=== PATIENT | female | born 1980 | race Caucasian/White ===

== ENCOUNTER 2023-03-20 15:07 | Inpatient (IN) | payer MEDICAID ==
[~2023-03-20] VITALS: Ht 157.5 cm; Wt 89.4 kg
[~2023-03-20 15:07] MED LIST: FERR324T11 PO; MEDR10TA PO
[2023-03-20 16:21] LABS: BASOPHILS % (AUTO) 0.6 % (0.0-2.0); EOSINOPHILS % (AUTO) 0.5 % (0.0-4.0); LYMPHOCYTES # (AUTO) 1.2 K/uL (2.5-16.5); LYMPHOCYTES % (AUTO) 14.2 % (20.5-51.1); MEAN CORPUSCULAR HEMOGLOBIN 21 pg (27-31); MEAN CORPUSCULAR HGB CONC 31 g/dL (33-37); MEAN CORPUSCULAR VOLUME 66.2 fL (80-94); MONOCYTES # (AUTO) 0.5 K/uL (0.8-1.0); MONOCYTES % (AUTO) 5.5 % (1.7-9.3); NEUTROPHILS # (AUTO) 6.5 K/uL (1.8-7.7); NEUTROPHILS % (AUTO) 79.2 % (42.2-75.2); PLATELET COUNT (AUTO) 239 K/uL (140-450); RED BLOOD CELL COUNT(AUTO) 2.65 MIL/uL (4.20-5.40); RED CELL DISTRIBUTION WIDTH 17.8 % (11.6-13.7); WHITE BLOOD COUNT (AUTO) 8.2 K/uL (4.8-10.8)
[2023-03-20 16:40] LABS: ALBUMIN 3.1 g/dL (3.4-5.0); ANION GAP 14.9 (8-16); CARBON DIOXIDE 22.9 mmol/L (21-32); CREATININE 0.6 mg/dL (0.6-1.3); POTASSIUM 3.8 mmol/L (3.5-5.1); TOTAL BILIRUBIN 0.3 mg/dL (0.0-1.0)
--- NOTE | 2023-03-20 16:41 | NUR ---
ermd aware of h/h 5.5/ 17.5
[2023-03-20 16:43] LABS: HEMATOCRIT 17.5 % (36-48); HEMOGLOBIN 5.5 g/dL (12.0-16.0)
--- NOTE | 2023-03-20 17:14 | NUR ---
VAGINAL BLEEDING X 10 DAYS, PATIENT IS PALE LOOKING, WITH BOUTS OF INTERMITTENT DIZZINESS.
--- NOTE | 2023-03-20 17:23 | NUR ---
CALL CENTRE SUPERVISOR AT BEDSIDE.
[2023-03-20 17:53] LABS: PROTHROMBIN TIME 9.9 secs (10.8-13.4)
[2023-03-20 18:05] LABS: APPEARANCE,URINE BLOODY (CLEAR); BILIRUBIN,URINE NEGATIVE (NEGATIVE); BLOOD, URINE 3+ (NEGATIVE); COLOR,URINE AMBER (YELLOW); LEUKOCYTE ESTERASE ,URINE NEGATIVE (NEGATIVE); NITRITE, URINE NEGATIVE (NEGATIVE); UGLUCOSE 3+ (NEGATIVE)
[2023-03-20 18:14] LABS: CALCIUM OXALATE CRYSTALS,UR None Seen /HPF (None Seen); RBC,URINE 50-80 /HPF (0-5); TRICHOMONAS,URINE None Seen /HPF (None Seen); YEAST,URINE None Seen /HPF (None Seen)
[2023-03-20 18:15] LABS: COARSE GRANULAR CASTS,URINE None Seen /LPF (None Seen); FINE GRANULAR CASTS,URINE None Seen /LPF (None Seen); HYALINE CASTS, URINE None Seen /LPF (None Seen); OTHER CASTS, URINE None Seen /LPF (None Seen); OTHER CRYSTALS,URINE None Seen /HPF (None Seen); RED BLOOD CELL CASTS,URINE None Seen /LPF (None Seen); TRIPLE PHOSPHATE CRYSTAL,UR None Seen /HPF (None Seen); URIC ACID CRYSTALS,URINE None Seen /HPF (None Seen); URINE AMORPHOUS URATE None Seen /HPF (None Seen); WAXY CASTS,URINE None Seen /LPF (None Seen)
[2023-03-20 18:24] LABS: FREE T4 (FREE THYROXINE) 0.85 ng/dL (0.76-1.46); THYROID STIMULATING HORMONE 1.77 uIU/mL (0.34-3.74)
--- NOTE | 2023-03-20 18:25 | NUR ---
PELVIC EXAM COMPLETED BY PROVIDER, ESCORTED BY FEMALE RN.
--- NOTE | 2023-03-20 18:55 | NUR ---
BLOOD TRANSFUSION STARTED. SEE PAPER TRANSFUSION FORM.
--- NOTE | 2023-03-20 19:30 | NUR ---
RECEIVED IN BED 11 WITH PRBC'S INFUSING WELL. PT DENIES ANY COMPLAINTS AT THIS TIME.
--- NOTE | 2023-03-20 20:40 | NUR ---
REPORT CALLED TO SANDI YANG
--- NOTE | 2023-03-20 20:48 | NUR ---
TO BED 125B VIA GURNEY, ATTACHED TO CM, ACCOMPANIED BY RN AND ERT
[2023-03-20 20:50] VITALS: PULSE 86; RESP 18; O2SAT 100
--- NOTE | 2023-03-20 20:50 | NUR ---
[facility] 42 [facility] CC: HEAVY VAGINAL BLEEDING. NO ACUTE DISTRESS ON ROOM AIR. IV ACCESS ON THE LEFT AC 20 GAUGE INTACT AND PATENT. SKIN INTACT. AMBULATORY. SAFETY PRECAUTIONS ARE IN PLACE. CALL LIGHT IN REACH. MRSA SCREENING DONE. INSTRUCTED PATIENT NPO AXCEPT MEDS WITH UNDERSTANDING.
[2023-03-20 20:58] VITALS: PULSE 93
[2023-03-20] MEDS ORDERED: DEXT 5% /NACL 0.9% 1,000 ML IV SCH (23:15)
[2023-03-20] MEDS ORDERED: ONDANSETRON 4 MG/2 ML VIAL IVP PRN (23:30)
[2023-03-20] MEDS ORDERED: HYDROcodone/APAP 7.5/325 MG 1 TAB PO PRN (23:30)
[2023-03-20] MEDS ORDERED: ACETAMINOPHEN 325 MG TAB PO PRN (23:30)
[2023-03-21] VITALS: BP 106/43; PULSE 86; RESP 18; TEMP 99; O2SAT 99
[2023-03-21 00:13] LABS: BARBITURATE, URINE NEGATIVE ng/ml (NEG <=200); BENZODIAZEPINE, URINE NEGATIVE ng/mL (NEG <=200); CANNABINOID, URINE NEGATIVE ng/mL (NEG <=50); COCAINE, URINE NEGATIVE ng/mL (NEG <=300); OPIATE, URINE NEGATIVE ng/mL (NEG <=2000); PHENCYCLIDINE SCREEN,URINE NEGATIVE ng/mL (NEG <=25)
--- NOTE | 2023-03-21 00:38 | NUR ---
RECEIVED A CALL FROM [facility] ,LAB REPORTING CRITICAL LAB VALUE LACTIC ACID 3.2. NOTIFIED DR. ANDERSEN EXECUTIVE CREATIVE DIRECTOR WITH ORDERS, CARRIED OUT.
[2023-03-21 00:56] LABS: MAGNESIUM 1.8 mg/dL (1.8-2.4); PHOSPHORUS 2.9 mg/dL (2.5-4.9); TRIGLYCERIDES 263 mg/dL (30-150)
[2023-03-21 00:57] LABS: AMYLASE 32 U/L (25-115); CHOL/HDL RATIO 4.3 (1-4.5); FREE T4 (FREE THYROXINE) 0.88 ng/dL (0.76-1.46); HDL CHOLESTEROL 41 mg/dL (40-60); LDL (CALC) 82 mg/dL (60-100); LIPASE 89 U/L (73-393); THYROID STIMULATING HORMONE 1.86 uIU/mL (0.34-3.74)
--- NOTE | 2023-03-21 03:30 | NUR ---
I UNIT OF BLOOD TRANSFUSION COMPLETED WITH NO ADVERSE REACTION NOTED AT THIS TIME.
[2023-03-21 04:00] VITALS: BP 119/58; PULSE 75; PULSE 96; RESP 17; TEMP 97.5; O2SAT 98
[2023-03-21] MEDS: NACL 0.9% 1,000 ML IV SCH ×4 (04:12→23:24)
[2023-03-21 05:37] LABS: BASOPHILS % (AUTO) 0.5 % (0.0-2.0); EOSINOPHILS # (AUTO) 0.1 K/uL (0-0.4); EOSINOPHILS % (AUTO) 1.4 % (0.0-4.0); HEMATOCRIT 22.3 % (36-48); HEMOGLOBIN 7.1 g/dL (12.0-16.0); LYMPHOCYTES % (AUTO) 25.6 % (20.5-51.1); MEAN CORPUSCULAR HEMOGLOBIN 24 pg (27-31); MEAN CORPUSCULAR HGB CONC 32 g/dL (33-37); MEAN CORPUSCULAR VOLUME 74.4 fL (80-94); MONOCYTES # (AUTO) 0.5 K/uL (0.8-1.0); MONOCYTES % (AUTO) 6.9 % (1.7-9.3); NEUTROPHILS % (AUTO) 65.6 % (42.2-75.2); PLATELET COUNT (AUTO) 210 K/uL (140-450); WHITE BLOOD COUNT (AUTO) 7.7 K/uL (4.8-10.8)
[2023-03-21 06:07] LABS: ANION GAP 12.9 (8-16); CREATININE 0.4 mg/dL (0.6-1.3); POTASSIUM 3.9 mmol/L (3.5-5.1)
[2023-03-21 06:14] LABS: MAGNESIUM 1.9 mg/dL (1.8-2.4); PHOSPHORUS 3.7 mg/dL (2.5-4.9)
--- NOTE | 2023-03-21 07:33 | NUR ---
GAVE BEDSIDE REPORT TO AM NURSE FOR CONTINUITY OF CARE. PATIENT STABLE.
--- NOTE | 2023-03-21 07:38 | NUR ---
RECEIVED PT FROM NIGHT RN, PT IS AWAKE, ALERT AND ORIENTED, ON ROOM AIR, [place]LANDER SPEAKING, AMBULATES TO THE BATHROOM, IV LINE NOTED ON THE LEFT AC G. 20 WITH NS INFUSING AT 100ML/HR, NO SIGN OF DISTRESS AND WILL CONTINUE TO MONITOR PT.
[2023-03-21 08:00] VITALS: BP 122/72; PULSE 77; PULSE 82; RESP 18; TEMP 97; O2SAT 98
[2023-03-21] MEDS: DOCUSATE SODIUM 100 MG GELCAP PO SCH ×2 (08:31→23:22)
[2023-03-21] MEDS: PANTOPRAZOLE 40 MG INJ VIAL IVP SCH (08:32)
--- NOTE | 2023-03-21 08:32 | NUR ---
PT WAS GIVEN THE SCHEDULED AM MEDICATIONS
--- NOTE | 2023-03-21 09:17 | NUR ---
PATIENT HAS BEEN SCREENED AND CATEGORIZED LOW NUTRITION RISK. PATIENT WILL BE SEEN WITHIN 7 DAYS OF ADMISSION. 03/27/[address]
[2023-03-21 12:00] VITALS: BP 108/63; PULSE 76; PULSE 83; RESP 18; TEMP 97.8; O2SAT 100
[2023-03-21 16:00] VITALS: BP 108/64; PULSE 76; PULSE 93; RESP 18; TEMP 97.9; O2SAT 99
--- NOTE | 2023-03-21 19:20 | NUR ---
RECEIVED PATIENT IN BED ALERT WELL RESTED. NO COMPLAINTS OF PAIN. PATIENT STATED STILL WITH A LITTLE BIT OF BLEEDING. CALL LIGHT WITHIN REACH. ONGOING IVF OF NS AT 100 MLS/HR.
--- NOTE | 2023-03-21 19:33 | NUR ---
SPOKE WITH DR. LANGE ON THE PHONE AND SAID THAT HE IS ON HIS WAY TO SEE PT.
--- NOTE | 2023-03-21 19:34 | NUR ---
ENDORSED PT TO NIGHT RN FOR CONTINUITY OF CARE.
[2023-03-21 20:00] VITALS: BP 126/58; PULSE 73; PULSE 80; RESP 18; TEMP 98; O2SAT 97
[2023-03-21] MEDS: medroxyPROGESTERone 10 MG TAB PO SCH (20:30)
[2023-03-22] VITALS: BP 118/66; PULSE 76; PULSE 77; RESP 18; TEMP 97.1; O2SAT 96
[2023-03-22 04:00] VITALS: BP 111/59; PULSE 70; PULSE 73; RESP 18; TEMP 98.5; O2SAT 98
[2023-03-22 05:30] LABS: BASOPHILS % (AUTO) 0.4 % (0.0-2.0); EOSINOPHILS # (AUTO) 0.1 K/uL (0-0.4); EOSINOPHILS % (AUTO) 1.8 % (0.0-4.0); HEMATOCRIT 20.8 % (36-48); LYMPHOCYTES # (AUTO) 1.6 K/uL (2.5-16.5); LYMPHOCYTES % (AUTO) 24.1 % (20.5-51.1); MEAN CORPUSCULAR HEMOGLOBIN 24 pg (27-31); MEAN CORPUSCULAR HGB CONC 32 g/dL (33-37); MONOCYTES # (AUTO) 0.4 K/uL (0.8-1.0); MONOCYTES % (AUTO) 6.5 % (1.7-9.3); NEUTROPHILS # (AUTO) 4.5 K/uL (1.8-7.7); NEUTROPHILS % (AUTO) 67.2 % (42.2-75.2); PLATELET COUNT (AUTO) 201 K/uL (140-450); RED BLOOD CELL COUNT(AUTO) 2.81 MIL/uL (4.20-5.40); RED CELL DISTRIBUTION WIDTH 24.6 % (11.6-13.7); WHITE BLOOD COUNT (AUTO) 6.7 K/uL (4.8-10.8)
--- NOTE | 2023-03-22 05:40 | NUR ---
RECEIVED A CALL FROM [id number] ,LAB REPORTING CRITICAL LAB VALUE HGB 6.[address] PAL WITH ORDERS, NOTED, CARRIED OUT.
[2023-03-22 05:41] LABS: HEMOGLOBIN 6.7 g/dL (12.0-16.0)
[2023-03-22 06:11] LABS: ANION GAP 12.5 (8-16); CARBON DIOXIDE 23.9 mmol/L (21-32); CREATININE 0.4 mg/dL (0.6-1.3); POTASSIUM 3.4 mmol/L (3.5-5.1)
[2023-03-22] MEDS: NACL 0.9% 1,000 ML IV SCH ×2 (06:14→16:14)
[2023-03-22 06:22] LABS: MAGNESIUM 1.9 mg/dL (1.8-2.4)
--- NOTE | 2023-03-22 07:17 | NUR ---
GAVE REPORT TO NURSE HAYES FOR CONTINUITY OF CARE.
--- NOTE | 2023-03-22 07:40 | NUR ---
GOT REPORT FROM THE NIGHT NURSE, PT AWAKE DISCUSSED POC.[email or web address]
--- NOTE | 2023-03-22 07:42 | NUR ---
GOT REPORT FROM THE NIGHT NURSE, PT AWAKE HAVING BP [email or web address]
[2023-03-22 08:00] VITALS: BP 125/67; PULSE 85; PULSE 93; RESP 18; TEMP 97.1; O2SAT 100; O2SAT 97
[2023-03-22] MEDS: PANTOPRAZOLE 40 MG INJ VIAL IVP SCH (08:58)
[2023-03-22] MEDS: medroxyPROGESTERone 10 MG TAB PO SCH (08:58)
[2023-03-22] MEDS: DOCUSATE SODIUM 100 MG GELCAP PO SCH ×2 (08:58→20:22)
--- NOTE | 2023-03-22 11:20 | NUR ---
BLOOD TRANSFUSION IS GOING WELL , NO REACTION, [email or web address]
[2023-03-22 12:00] VITALS: BP 130/69; PULSE 81; RESP 18; TEMP 98.6; O2SAT 99
--- NOTE | 2023-03-22 15:37 | NUR ---
PT BED CHANGED , PT ASKED FOR SODA AND PROVIDED. [email or web address]
[2023-03-22 16:00] VITALS: BP 117/62; PULSE 77; PULSE 79; RESP 18; TEMP 98; O2SAT 98
--- NOTE | 2023-03-22 16:27 | NUR ---
SECOND UNIT OF BLOOD IS INFUSING , NO REACTION, FAMILY AT BED SIDE. ONLY SM AMOUNT OF VAGINAL BLEEDING.[email or web address]
--- NOTE | 2023-03-22 17:59 | NUR ---
BLOOD TRANSFUSITION DONE NO REACTION
--- NOTE | 2023-03-22 19:27 | NUR ---
gave report from the night nurse.[email or web address]
--- NOTE | 2023-03-22 19:30 | NUR ---
RECEIVED PT FROM DAY RN FOR CONTINUITY OF CARE, PT IS AWAKE, ALERT AND ORIENTED X 4, ON ROOM AIR, MAURITIAN SPEAKING, AMBULATES TO THE BATHROOM, FAMILY AT BEDSIDE.IV LINE NOTED ON THE LEFT AC G. 20, S/P BLOOD TRANSFUSION. NO SIGN AND SYMPTOMS OF DISTRESS. ALL PRECAUTIONS IN PLACE. CALL LIGHT WITHIN REACH.WILL CONTINUE TO MONITOR PT.
[2023-03-22 20:00] VITALS: BP 132/59; PULSE 84; PULSE 85; PULSE 95; RESP 18; TEMP 98.9; O2SAT 97; O2SAT 98
[2023-03-22 20:26] LABS: HEMATOCRIT 28.7 % (36-48); HEMOGLOBIN 9.4 g/dL (12.0-16.0)
--- NOTE | 2023-03-22 21:00 | NUR ---
SCHEDULED MEDICATIONS GIVEN. PT TOLERATED WELL. WILL CONTINUE TO MONITOR.
--- NOTE | 2023-03-22 22:43 | NUR ---
RECEIVED PT FROM DAY RN FOR CONTINUITY OF CARE, PT IS AWAKE, ALERT AND ORIENTED X 4, ON ROOM AIR, HAITIAN SPEAKING, AMBULATES TO THE BATHROOM, FAMILY AT BEDSIDE.IV LINE NOTED ON THE LEFT AC G. 20, S/P BLOOD TRANSFUSION. NO SIGN AND SYMPTOMS OF DISTRESS. ALL PRECAUTIONS IN PLACE. CALL LIGHT WITHIN REACH.WILL CONTINUE TO MONITOR PT.
--- NOTE | 2023-03-22 22:45 | NUR ---
PT IN RESTING BED. NO S/SX OF DISTRESS. NO COMPLAINS OF PAIN. CALL LIGHT WITHIN REACH. WILL CONTINUE TO MONITOR.
[2023-03-23] VITALS: BP 122/59; PULSE 75; PULSE 77; RESP 18; TEMP 98.5; O2SAT 98
[2023-03-23] MEDS: NACL 0.9% 1,000 ML IV SCH ×2 (02:14→06:36)
[2023-03-23 04:00] VITALS: BP 132/63; PULSE 68; PULSE 77; RESP 18; TEMP 97.1; O2SAT 97
[2023-03-23 05:33] LABS: BASOPHILS % (AUTO) 0.5 % (0.0-2.0); EOSINOPHILS # (AUTO) 0.1 K/uL (0-0.4); EOSINOPHILS % (AUTO) 1.5 % (0.0-4.0); HEMATOCRIT 26.5 % (36-48); HEMOGLOBIN 8.5 g/dL (12.0-16.0); LYMPHOCYTES # (AUTO) 1.4 K/uL (2.5-16.5); LYMPHOCYTES % (AUTO) 20.4 % (20.5-51.1); MEAN CORPUSCULAR HEMOGLOBIN 25 pg (27-31); MEAN CORPUSCULAR HGB CONC 32 g/dL (33-37); MEAN CORPUSCULAR VOLUME 77.8 fL (80-94); MONOCYTES # (AUTO) 0.5 K/uL (0.8-1.0); MONOCYTES % (AUTO) 7.1 % (1.7-9.3); NEUTROPHILS % (AUTO) 70.5 % (42.2-75.2); PLATELET COUNT (AUTO) 192 K/uL (140-450); RED BLOOD CELL COUNT(AUTO) 3.41 MIL/uL (4.20-5.40); RED CELL DISTRIBUTION WIDTH 25.1 % (11.6-13.7); WHITE BLOOD COUNT (AUTO) 7.1 K/uL (4.8-10.8)
[2023-03-23 05:44] LABS: ANION GAP 11.9 (8-16); CARBON DIOXIDE 24.8 mmol/L (21-32); CREATININE 0.5 mg/dL (0.6-1.3); POTASSIUM 3.7 mmol/L (3.5-5.1)
[2023-03-23 05:57] LABS: MAGNESIUM 1.9 mg/dL (1.8-2.4); PHOSPHORUS 4.3 mg/dL (2.5-4.9)
--- NOTE | 2023-03-23 07:00 | NUR ---
PT IS STABLE. NO ACUTE EVENTS THROUGHOUT THE NIGHT. ALL NEEDS MET. NO S/SX OF DISTRESS AT THE MOMENT. ALL PRECAUTIONS IN PLACE. CALL LIGHT WITHIN REACH. WILL ENDORSE TO MORNING SHIFT NURSE.
--- NOTE | 2023-03-23 07:27 | NUR ---
GOT REPORT FROM THE NIGHT NURSE, PT AWAKE NO PAIN ONLY SMALL AMOUNT OF VAGINAL BLEEDING WHEN WIPING. [email or web address]
[2023-03-23 08:00] VITALS: BP 128/65; PULSE 77; PULSE 85; PULSE 88; RESP 18; TEMP 97.6; O2SAT 98
[2023-03-23] MEDS: PANTOPRAZOLE 40 MG INJ VIAL IVP SCH (09:06)
[2023-03-23] MEDS: DOCUSATE SODIUM 100 MG GELCAP PO SCH (09:06)
[2023-03-23] MEDS: medroxyPROGESTERone 10 MG TAB PO SCH (09:06)
--- NOTE | 2023-03-23 10:10 | NUR ---
no bleeding , pt is on the phone now. [email or web address]
[2023-03-23 10:28] VITALS: BP 128/65; PULSE 77; RESP 18; TEMP 98.6
[2023-03-23] MEDS ORDERED: MEDR10TA33 PO (10:35)
--- NOTE | 2023-03-23 12:56 | NUR ---
PT DISCHARGED HOME, DISCHARGE INSTRUCTION IS GIVEN ID AND IV REMOVED.[email or web address]
[2023-03-23] MEDS ORDERED: MEDR10TA PO (18:01)
== END 2023-03-23 13:00 | disposition home or self-care (01) | DRG 532 ==
LOC: MED 15:07 → MTU 19:27 → MMU 20:01
PROC: 30233N1 Transfusion of Nonautologous Red Blood Cells into Peripheral Vein, Percutaneous Approach (ICD-10-PCS; principal; 2023-03-20)
DX: N92.0 Excessive and frequent menstruation with regular cycle (principal); R65.10 Systemic inflammatory response syndrome (SIRS) of non-infectious origin without acute organ dysfunction; E44.0 Moderate protein-calorie malnutrition; D62 Acute posthemorrhagic anemia; N83.202 Unspecified ovarian cyst, left side; E66.01 Morbid (severe) obesity due to excess calories; N93.9 Abnormal uterine and vaginal bleeding, unspecified; Z98.891 History of uterine scar from previous surgery; Z68.36 Body mass index [BMI] 36.0-36.9, adult
CPT/HCPCS: 36415; 36430; 76856; 80048; 80053; 80305; 81001; 82150; 83036; 83540; 83605; 83690; 83735; 83880; 84100; 84439; 84443; 84484; 84703; 85018; 85025; 85610; 85730; 86886; 86900; 86901; 86920; 87040; 87081; 87086; 99285; C9113; P9016; Q0092